=== PATIENT | male | born 1990 | race Caucasian/White ===

== ENCOUNTER 2022-02-04 05:37 | Inpatient (IN) | payer BC, OTHER, SELFPAY ==
[2022-02-04] MEDS ORDERED: MORPHINE 4 MG/ML SYR ONE (06:39)
[2022-02-04] MEDS ORDERED: NA CHLORIDE 0.9% 1,000 ML ONE ×2 (06:40→16:16)
[2022-02-04] MEDS ORDERED: ONDANSETRON 4 MG/2 ML VIAL ONE (06:40)
[2022-02-04 06:41] LABS: Absolute Lymphocytes (CBC) 1.9 K/uL (0.7-4.9); Hematocrit 41.7 % (39.6-49.0); Lymphocytes % 20.6 % (15.3-44.8); MCV 79.8 fL (80-100); MPV 7.5 fL (7.6-11.3); RBC Red Blood Cell Count 5.23 M/uL (4.33-5.43)
[2022-02-04 06:45] LABS: Protime INR 1.07
[2022-02-04 06:57] LABS: SARS-CoV-2 Antigen Rapid Res Negative (Negative)
[2022-02-04 07:00] LABS: Albumin 3.5 g/dL (3.4-5.0); Bilirubin Total 0.4 mg/dL (0.2-1.0); Potassium 3.7 mmol/L (3.5-5.1); Protein, Total 7.5 g/dL (6.4-8.2)
--- NOTE | 2022-02-04 07:57 | RAD REPORT ---
EXAM DESCRIPTION: CTAbdomen Pelvis W Contrast - 02/04/2022 7:37 am CLINICAL HISTORY: abdominal pain, blood in stool COMPARISON: No comparisons TECHNIQUE: CT of the abdomen and pelvis was performed with IV contrast. All CT scans are performed using dose optimization technique as appropriate and may include automated exposure control or mA/KV adjustment according to patient size. FINDINGS: Lower chest: No acute abnormality. Liver: No acute abnormality or suspicious lesions. Focal fat along the falciform ligament. Biliary: No biliary ductal dilatation. Stomach: No significant focal abnormality. Duodenum: No significant focal abnormality. Pancreas: No significant abnormality. Spleen: No significant abnormality. Adrenal: No suspicious lesions. Kidney/ureter: No hydronephrosis. No renal calculi. Retroperitoneum: No retroperitoneal adenopathy. Vascular: No aneurysm. Bowel: Circumferential rectal wall thickening. Enlarged perirectal lymph nodes.. Normal appendix. Peritoneum: No ascites or free air. Bladder: Grossly unremarkable. Reproductive: No adnexal masses. Bones: No acute fracture. Other: n/a IMPRESSION: Moderate circumferential thickening at the lower third of the rectum with an enlarged pe rirectal lymph node could be secondary to chronic inflammation however a rectal adenocarcinoma has a similar appearance and should be excluded. Recommend colonoscopy.
--- NOTE | 2022-02-04 09:51 | EDPHYS ---
Physician Documentation [facility] Name: Antonio Rees Age: 31 yrs Sex: Male : 1990 Arrival Date: 02/04/2022 Time: 05:42 Bed 18 Private MD: ED Physician Jeb Damon HPI: 02/04 06:02 This 31 yrs old Male presents to ER via Unassigned with complaints of Abdominal Pain. rn 06:02 The patient presents with abdominal pain that is diffuse. Onset: The symptoms/episode rn began/occurred 1 year(s) ago. The symptoms do not radiate. Associated signs and symptoms: Pertinent positives: blood in stools, diarrhea, Pertinent negatives: fever. The symptoms are described as crampy, intermittent. Modifying factors: The symptoms are alleviated by nothing, the symptoms are aggravated by food. Severity of pain: At its worst the pain was moderate in the emergency department the pain is unchanged. The patient has experienced similar episodes in the past. The patient has not recently seen a physician. Pt reports approx 1 year of "GI issues". Recently seen by Dr. Pagan, blood ordered, but no scope. Pt reports intermittent but frequent abd pain with nausea and diarrhea. + intermittent bloody stool. No known famhx of intestinal problems. + weight loss but states has made dietary modifications. . Historical: - Allergies: 06:10 No Known Allergies; vc1 - Home Meds: 06:10 None [Active]; vc1 - PMHx: 06:10 None; vc1 - PSHx: 06:10 Cyst removed from lower back; vc1 - Immunization history:: Adult Immunizations up to date, Client reports having NOT received the Covid vaccine. - Social history:: Smoking status: Patient denies any tobacco usage or history of. Patient uses alcohol, Couple of beers a week. - Family history:: not pertinent. - Hospitalizations: : No recent hospitalization is reported. ROS: 06:02 Constitutional: Negative for fever, chills Eyes: Negative for injury, pain, redness, rn and discharge, Cardiovascular: Negative for chest pain, palpitations, and edema, Respiratory: Negative for shortness of breath, cough, wheezing, and pleuritic chest pain, Abdomen/GI: + abd pain with diarrhea and blood in stool Back: Negative for injury and pain, MS/Extremity: Negative for injury and deformity, Skin: Negative for injury, rash, and discoloration, Neuro: Negative for headache, weakness, numbness, tingling, and seizure. Exam: 06:02 Constitutional: This is a well developed, well nourished patient who is awake, alert, rn and in no acute distress. Head/Face: Normocephalic, atraumatic. Cardiovascular: Regular rate and rhythm. No pulse deficits. Respiratory: Speaking full sentences, unlabored. No increased work of breathing, no retractions or nasal flaring. Abdomen/GI: soft, + tender in bilateral lower quadrants Skin: Warm, dry MS/ Extremity: Pulses equal, no cyanosis. Neuro: Awake and alert, GCS 15 Vital Signs: 06:00 BP 144 / 95; Pulse 91; Resp 17 S; Pulse Ox 98% on R/A; Pain 9/10; ha1 06:04 BP 144 / 95 Sitting; Pulse 91 MON; Resp 17 S; Temp 98.0(O); Pulse Ox 98% on R/A; Weight vc1 111.13 kg (R); Height 5 ft. 10 in. (177.80 cm) (R); 07:45 BP 148 / 70; Pulse 69; Resp 16 S; Pulse Ox 100% on R/A; Pain 3/10; jg9 08:30 BP 120 / 65; Pulse 71; Resp 17 S; Pulse Ox 98% on R/A; jg9 10:15 BP 136 / 66; Pulse 67; Resp 14 S; Pulse Ox 100% on R/A; jg9 06:04 Body Mass Index 35.15 (111.13 kg, 177.80 cm) vc1 MDM: 05:43 Patient medically screened. rn 07:22 Transition of care: Care assumed from Denzel Smith MD. ms3 08:14 Physician consultation: Kip Pagan MD was called at 08:04. ms3 16:26 Data reviewed: vital signs, nurses notes, and as a result, I will admit patient. ED ms3 course: Case discussed with Dr Pagan and he will plan on endoscopy tomorrow at 2 PM. Would like colon prep. Discussed case with Dr Godinez.. 02/04 06:01 Order name: CBC with Diff; Complete Time: 06:59 rn 02/04 06:01 Order name: CMP; Complete Time: 07:01 rn 02/04 06:01 Order name: Lipase; Complete Time: 07:01 rn 02/04 06:01 Order name: PT-INR; Complete Time: 06:59 rn 02/04 06:01 Order name: Ptt, Activated; Complete Time: 06:59 rn 02/04 06:01 Order name: SARS RAPID; Complete Time: 06:59 rn 02/04 06:01 Order name: CT Abd/Pelvis - IV Contrast Only; Complete Time: 07:58 rn 02/04 06:01 Order name: IV Saline Lock; Complete Time: 06:16 rn 02/04 06:01 Order name: Labs collected and sent; Complete Time: 07:14 rn Administered Medications: 06:38 Drug: morphine 4 mg Route: IVP; Infused Over: 4 mins; Site: right antecubital; ha1 07:03 Follow up: Response: No adverse reaction; Pain is decreased; RASS: Alert and Calm (0) ha1 06:39 Drug: NS 0.9% 1000 ml Route: IV; Rate: 1 bolus; Site: right antecubital; ha1 08:25 Follow up: IV Status: Completed infusion; IV Intake: 1000ml jg9 06:39 Drug: Zofran (Ondansetron) 4 mg Route: IVP; Site: right antecubital; ha1 07:03 Follow up: Response: No adverse reaction ha1 Disposition Summary: 02/04/22 09:50 Hospitalization Ordered Hospitalization Status: Observation ms3 [facility] ms3 Condition: Stable ms3 Problem: new ms3 Symptoms: are unchanged ms3 Bed/Room Type: Standard ms3 Provider: Antonio Godinez(02/04/22 10:42) ms3 Room Assignment: [facility](02/04/22 15:12) Diagnosis - Lower abdominal pain, unspecified ms3 - Lower GI bleeding ms3 Forms: - Medication Reconciliation Form ms3 - SBAR form ms3 Signatures: Dispatcher [employer] Kerry Zacarias RN RN dw Nieto, Roman, MD MD rn Sims, Marcus, DO DO ms3 Chela Lloyd RN RN vc1 Keiko Ames RN RN ha1 Tracie Nunez RN jg9 Corrections: (The following items were deleted from the chart) 10:42 09:50 Hal Venegas ms3 ms3 15:12 09:50 ms3 dw
--- NOTE | 2022-02-04 09:51 | ER ---
Nurse's Notes [facility] Name: Antonio Rees Age: 31 yrs Sex: Male : 1990 Arrival Date: 02/04/2022 Time: 05:42 Bed 18 Private MD: Diagnosis: Lower abdominal pain, unspecified;Lower GI bleeding Presentation: 02/04 06:04 Chief complaint: Patient states: "I started having abdominal pain about a year ago, it vc1 is to the point where it is just getting worse and worse. I can't eat what I normally eat. I am having trouble sleeping because of the pain or because I feel like I need to go to the bathroom all night. When I do go there is blood in my stool.". Coronavirus screen: Vaccine status: Patient reports being unvaccinated. At this time, the client does not indicate any symptoms associated with coronavirus-19. Ebola Screen: No symptoms or risks identified at this time. Initial Sepsis Screen: Does the patient meet any 2 criteria? HR > 90 bpm. No. Patient's initial sepsis screen is negative. Does the patient have a suspected source of infection? No. Patient's initial sepsis screen is negative. Risk Assessment: Do you want to hurt yourself or someone else? Patient reports no desire to harm self or others. Onset of symptoms is unknown. 06:04 Method Of Arrival: Ambulatory vc1 06:04 Acuity: GEORGIE 3 vc1 Triage Assessment: 06:10 General: Appears in no apparent distress. Behavior is calm, cooperative, appropriate vc1 for age. Pain: Complains of pain in umbilical area and left lower quadrant Pain radiates to back Also complains of decreased appetite, sleeplessness. EENT: No deficits noted. Neuro: Level of Consciousness is awake, alert, obeys commands, Oriented to person, place, time, situation, Appropriate for age. Cardiovascular: Patient's skin is warm and dry. Respiratory: Airway is patent Respiratory effort is even, unlabored, Respiratory pattern is regular, symmetrical. GI: Abdomen is round non-distended, Reports lower abdominal pain, diarrhea, bloody stool, epigastric pain, gaseousness, intolerance of food. : No signs and/or symptoms were reported regarding the genitourinary system. Derm: No deficits noted. Musculoskeletal: No deficits noted. Historical: - Allergies: 06:10 No Known Allergies; vc1 - Home Meds: 06:10 None [Active]; vc1 - PMHx: 06:10 None; vc1 - PSHx: 06:10 Cyst removed from lower back; vc1 - Immunization history:: Adult Immunizations up to date, Client reports having NOT received the Covid vaccine. - Social history:: Smoking status: Patient denies any tobacco usage or history of. Patient uses alcohol, Couple of beers a week. - Family history:: not pertinent. - Hospitalizations: : No recent hospitalization is reported. Screenin:13 Abuse screen: Denies threats or abuse. Nutritional screening: No deficits noted. vc1 Tuberculosis screening: No symptoms or risk factors identified. Fall Risk None identified. Assessment: 06:00 General: Appears in no apparent distress. Behavior is calm, cooperative. Pain: ha1 Complains of pain in abdomen Pain does not radiate. Pain at worst was 10 out of 10 on a pain scale. Pain began a year ago Alleviated by medications, Aggravated by eating. Neuro: Level of Consciousness is awake, alert, obeys commands, Oriented to person, place, time, situation, Speech is normal. Cardiovascular: Capillary refill < 3 seconds Patient's skin is warm and dry. Respiratory: Airway is patent Trachea midline Respiratory effort is even, unlabored. GI: Abdomen is non-distended, obese, Bowel sounds present X 4 quads. : No signs and/or symptoms were reported regarding the genitourinary system. EENT: No deficits noted. No signs and/or symptoms were reported regarding the EENT system. Derm: Skin is intact, Skin is pink, warm \\T\\ dry. Musculoskeletal: Circulation, motion, and sensation intact. Range of motion: intact in all extremities. 07:50 Reassessment: Patient states feeling better. Patient states symptoms have improved. GI: jg9 Abd is soft and non tender X 4 quads. Reports lower abdominal pain, Pain is 3 out of 10 on a pain scale. 08:00 Reassessment: Patient and/or family updated on plan of care and expected duration. Pain jg9 level reassessed. Patient is alert, oriented x 3, equal unlabored respirations, skin warm/dry/pink. 09:00 Reassessment: Patient and/or family updated on plan of care and expected duration. Pain jg9 level reassessed. Patient is alert, oriented x 3, equal unlabored respirations, skin warm/dry/pink. Vital Signs: 06:00 BP 144 / 95; Pulse 91; Resp 17 S; Pulse Ox 98% on R/A; Pain 9/10; ha1 06:04 BP 144 / 95 Sitting; Pulse 91 MON; Resp 17 S; Temp 98.0(O); Pulse Ox 98% on R/A; Weight vc1 111.13 kg (R); Height 5 ft. 10 in. (177.80 cm) (R); 07:45 BP 148 / 70; Pulse 69; Resp 16 S; Pulse Ox 100% on R/A; Pain 3/10; jg9 08:30 BP 120 / 65; Pulse 71; Resp 17 S; Pulse Ox 98% on R/A; jg9 10:15 BP 136 / 66; Pulse 67; Resp 14 S; Pulse Ox 100% on R/A; jg9 06:04 Body Mass Index 35.15 (111.13 kg, 177.80 cm) vc1 ED Course: 05:42 Patient arrived in ED. es 05:43 Denzel Smith MD is Attending Physician. rn 06:00 Inserted saline lock: 20 gauge in right antecubital area, using aseptic technique. ha1 06:01 Keiko Ames RN is Primary Nurse. ha1 06:09 Triage completed. vc1 06:13 Arm band placed on. vc1 06:13 Patient has correct armband on for positive identification. Bed in low position. Call vc1 light in reach. Pulse ox on. NIBP on. 06:38 CBC with Diff Sent. ha1 06:38 CMP Sent. ha1 06:38 Lipase Sent. ha1 06:38 PT-INR Sent. ha1 06:38 Ptt, Activated Sent. ha1 06:40 SARS RAPID Sent. ha1 07:17 Report given to PERRY Grewal. ha1 07:21 Attending Physician role handed off by Denzel Smith MD ms3 07:21 Jeb Damon DO is Attending Physician. ms3 07:39 CT Abd/Pelvis - IV Contrast Only In Process Unspecified. EDMS 08:40 ED physician to see patient. jg9 09:00 No apparent distress. Resting quietly. Awaiting disposition. jg9 09:50 Hal Venegas MD is Hospitalizing Provider. ms3 10:42 Antonio Godinez is Hospitalizing Provider. ms3 16:21 No provider procedures requiring assistance completed. jg9 16:22 Patient admitted, IV remains in place. jg9 Administered Medications: 06:38 Drug: morphine 4 mg Route: IVP; Infused Over: 4 mins; Site: right antecubital; ha1 07:03 Follow up: Response: No adverse reaction; Pain is decreased; RASS: Alert and Calm (0) ha1 06:39 Drug: NS 0.9% 1000 ml Route: IV; Rate: 1 bolus; Site: right antecubital; ha1 08:25 Follow up: IV Status: Completed infusion; IV Intake: 1000ml j9 06:39 Drug: Zofran (Ondansetron) 4 mg Route: IVP; Site: right antecubital; ha1 07:03 Follow up: Response: No adverse reaction ha1 Medication: 16:22 VIS not applicable for this client. jg9 Intake: 08:25 IV: 1000ml; Total: 1000ml. jg9 Outcome: 09:50 Decision to Hospitalize by Provider. ms3 16:21 Admitted to ER Hold. Please see [facility] for further documentation. jg9 16:21 Condition: stable 16:22 Patient left the ED. jg9 Signatures: Dispatcher [employer] Danii Brown Roman, MD MD rn Sims, Marcus, DO DO ms3 Tracie Nunez RN RN jg9 Chela Lloyd RN RN 1 Keiko Ames RN RN ha1
--- NOTE | 2022-02-04 13:17 | P.HP ---
Certification for Inpatient Patient admitted to: Observation With expected LOS: <2 Midnights Practitioner: I am a practitioner with admitting privileges, knowledge of patient current condition, hospital course, and medical plan of care. Services: Services provided to patient in accordance with Admission requirements found in Title 42 Section 412.3 of the Code of Federal Regulations Patient History Date of Service: 02/04/22 Reason for admission: Lower GI bleed History of Present Illness: 31-year-old gentleman with known past medical history presented to the emergency department with a complaint abdominal pain and rectal bleeding. Patient states symptoms have been present for about 1 year. He described a constant abdominal pain and had been using Tylenol and ibuprofen to curb it. He also reported intermittent bloody bowel movement. He reports weight loss-about 70 pounds over the past 1 year, mixed intentional and unintentional. He saw Dr. Martino 1 month ago who recommended colonoscopy but not done yet. He experienced severe abdominal pain last night and therefore presented to the ED for evaluation. CT abdomen and pelvis done in the ED demonstrated moderate circumferential thickening at the lower third of the rectum with an enlarged perirectal lymph node could be secondary to chronic inflammation however a rectal adenocarcinoma has a similar appearance and should be excluded. Dr. Pagan was contacted who recommended hospitalization for colonoscopy. Patient is hospitalized for further management. Allergies No Known Allergies Allergy (Verified 02/04/22 10:47) Home Medications: NK [No Home Meds] 02/04/22 - Past Medical/Surgical History -: Morbid obesity -: None - Family History Father -: Hypertension - Social History Smoking Status: Never smoker Alcohol use: Yes CD- Drugs: No Place of Residence: Home Review of Systems Other: Except as documented, all other systems reviewed and negative. Physical Examination - Physical Exam General: Alert, In no apparent distress, Oriented x3 HEENT: PERRLA, Mucous membr. moist/pink, EOMI, Sclerae nonicteric Neck: Supple, JVD not distended Respiratory: Clear to auscultation bilaterally, Normal air movement Cardiovascular: No edema, Regular rate/rhythm, Normal S1 S2, No murmurs Capillary refill: <2 Seconds Gastrointestinal: Normal bowel sounds, Soft and benign, Non-distended, No rebound, No guarding, Tenderness (Lower abdomen) Musculoskeletal: No swelling, No tenderness Integumentary: No rashes, No cyanosis Neurological: Normal speech, Normal strength at 5/5 x4 extr, Cranial nerves 3-12 intact Lymphatics: No axilla or inguinal lymphadenopathy - Studies Laboratory Data (last 24 hrs) 02/04/22 06:20: PT 11.8, INR 1.07, APTT 28.6 02/04/22 06:20: Sodium 140, Potassium 3.7, BUN 12, Creatinine 1.07, Glucose 135 H, Total Bilirubin 0.4, AST 8 L, ALT 15, Alkaline Phosphatase 81, Lipase 94 02/04/22 06:20: WBC 9.30, Hgb 14.1, Hct 41.7, Plt Count 339 Assessment and Plan - Problems (Diagnosis) (1) GI bleeding Current Visit: Yes Status: Acute (2) Colon wall thickening Current Visit: Yes Status: Acute - Plan Placed under observation on the medical floor. Hydrate with IV normal saline Start empiric IV Rocephin. GI consulted for endoscopy. Keep n.p.o. overnight. Bowel prep per GI. Monitor hemoglobin and transfuse as needed. IV morphine as needed for pain. - Advance Directives Does patient have a Living Will: No Does patient have a Durable POA for Healthcare: No
[2022-02-04] MEDS ORDERED: NA CHLORIDE 0.9% 250 ML IV SCH (14:08)
[2022-02-04] MEDS: NA CHLORIDE 0.9% 1,000 ML IV SCH (14:08)
[2022-02-04] MEDS: CEFTRIAXONE 1,000 MG in NA CHLORIDE 0.9% 50 ML IVPB SCH (15:00)
[2022-02-04] MEDS ORDERED: CEFTRIAXONE 1000 MG/VIAL ONE (16:09)
[2022-02-04] MEDS: MORPHINE 2 MG/ML SYR IV PRN ×2 (16:09→22:10)
[2022-02-04] MEDS ORDERED: MORPHINE 2 MG/ML SYR ONE (16:19)
[2022-02-04] MEDS ORDERED: BISACODYL 10 MG RECTAL SUPP PR ONE (18:56)
[2022-02-04] MEDS ORDERED: GOLYTELY 4000 ML PO SCH (19:00)
[2022-02-04] MEDS ORDERED: METOCLOPRAMIDE 10 MG/2mL INJ IV SCH (19:00)
[2022-02-05] MEDS: NA CHLORIDE 0.9% 1,000 ML IV SCH ×4 (02:15→20:08)
[2022-02-05] MEDS: ONDANSETRON 4 MG/2 ML VIAL IV PRN ×2 (02:16→16:56)
[2022-02-05] MEDS: MORPHINE 2 MG/ML SYR IV PRN ×3 (02:16→23:15)
[2022-02-05 05:06] LABS: Absolute Lymphocytes (CBC) 2.2 K/uL (0.7-4.9); Hematocrit 42.5 % (39.6-49.0); Lymphocytes % 17.4 % (15.3-44.8); MPV 7.4 fL (7.6-11.3); RBC Red Blood Cell Count 5.25 M/uL (4.33-5.43)
[2022-02-05 05:19] LABS: Potassium 4.1 mmol/L (3.5-5.1)
[2022-02-05] MEDS: CEFTRIAXONE 1,000 MG in NA CHLORIDE 0.9% 50 ML IVPB SCH (09:55)
--- NOTE | 2022-02-05 13:55 | EKG ---
Test Date: 2022-02-05 Test Time: 11:18:17 Associate Director Career Services: BUTCH MEASUREMENT RESULTS: Intervals: Rate: 70 NH: 158 QRSD: 84 QT: 372 QTc: 401 [place]: P: 62 NH: 158 QRS: 60 T: 65 INTERPRETIVE STATEMENTS: Normal sinus rhythm Normal ECG No previous ECG available for comparison Electronically Signed On 02-05-22 13:54:39 CDT by Miki Bass
[2022-02-05 14:21] VITALS: BMI 35.2
--- NOTE | 2022-02-05 18:37 | P.PN ---
Subjective Date of Service: 02/05/22 Chief Complaint: Lower GI bleed No new complaint. He completed a bowel prep and had multiple diarrhea bowel movements. No bleeding per rectum. Physical Examination - Vital Signs Temperature: 97.7 F Blood Pressure: 120/82 Pulse: 67 Respirations: 18 Pulse Ox (%): 99 Assessment And Plan - Current Problems (Diagnosis) (1) GI bleeding Current Visit: Yes Status: Acute (2) Colon wall thickening Current Visit: Yes Status: Acute - Plan Physical Exam General: Alert, In no apparent distress, Oriented x3 HEENT: PERRLA, Mucous membr. moist/pink, EOMI, Sclerae nonicteric Neck: Supple, JVD not distended Respiratory: Clear to auscultation bilaterally, Normal air movement Cardiovascular: No edema, Regular rate/rhythm, Normal S1 S2, No murmurs Capillary refill: <2 Seconds Gastrointestinal: Normal bowel sounds, Soft and benign, Non-distended, No rebound, No guarding, Tenderness (Lower abdomen) Musculoskeletal: No swelling, No tenderness Integumentary: No rashes, No cyanosis Neurological: Normal speech, Normal strength at 5/5 x4 extr, Cranial nerves 3-12 intact Lymphatics: No axilla or inguinal lymphadenopathy Plan: Patient is n.p.o. for endoscopy/colonoscopy today Continue IV fluid Continue antibiotic. Monitor hemoglobin and transfuse as needed. IV morphine as needed for pain.
[2022-02-05] MEDS ORDERED: POLYETHYL GLY 3350 17 GM/DOSE PO PRN (20:31)
[2022-02-06] MEDS: NA CHLORIDE 0.9% 1,000 ML IV SCH ×3 (04:55→17:41)
[2022-02-06] MEDS: CEFTRIAXONE 1,000 MG in NA CHLORIDE 0.9% 50 ML IVPB SCH (07:38)
[2022-02-06] MEDS ORDERED: Ringers Lactate 1,000 ML IV ONE (14:54)
[2022-02-06] MEDS ORDERED: propofoL 200 MG/20 ML VIAL IV ONE ×3 (15:31→16:31)
[2022-02-06] MEDS ORDERED: LIDOCAINE 1% MPF 5 ML VIAL ONE (15:31)
--- NOTE | 2022-02-06 16:27 | ENDO RPT ---
[address], [address] EGD PROCEDURE REPORT EXAM DATE: 02/06/2022 PATIENT NAME: Antonio Rees MR#: [id number] BIRTHDATE: 1990 ATTENDING: Kip Pagan Dr STATUS: inpatient - 7 DENITRATOR: Bonnie Carson RN and Med Schwartz CST INDICATIONS: The patient is a 31 yr old Male here for an EGD due to bloating, dyspepsia, and early satiety PROCEDURE PERFORMED: EGD with biopsy MEDICATIONS: Per Anesthesia. TOPICAL ANESTHETIC: none CONSENT: The patient understands the risks and benefits of the procedure and understands that these risks include, but are not limited to: sedation, allergic reaction, infection, perforation and/or bleeding. Alternative means of evaluation and treatment include, among others: physical exam, x-rays, and/or surgical intervention. The patient elects to proceed with this endoscopic procedure. DESCRIPTION OF PROCEDURE: During intra-op preparation period all mechanical medical equipment was checked for proper function. Hand hygiene and appropriate measures for infection prevention was taken. Procedure, possible complications, and alternatives including but not limited to the possibility of bleeding, perforation, tear, infection, sepsis, need for surgery, need for blood transfusion, and anesthesia related complications were explained to the patient. After the risks, benefits and alternatives of the procedure were thoroughly explained, Informed consent was verified, confirmed and timeout was successfully executed by the treatment team. The patient was placed in the left lateral position. The patient was anesthetized with topical anesthesia. Through the anesthetized oropharyngeal area, the scope was passed without any difficulty. The [id number] ([id number]) endoscope was introduced through the mouth and advanced to the third portion of the duodenum. Retroflexed views revealed a small hiatal hernia. The gastroscope was then slowly withdrawn and removed. LA Class A esophagitis was found in the lower esophagus. A small hiatal hernia was found. Multiple (3) erosions were found in the antrum. Multiple biopsies were obtained and sent to pathology. Mild duodenitis was found in the bulb of the duodenum. ADVERSE EVENTS: There were no complications. IMPRESSIONS: 1. LA class A esophagitis in the lower esophagus 2. Small hiatal hernia 3. Multiple (3) erosions in the antrum, s/p biopsies 4. Mild duodenitis in the bulb of the duodenum RECOMMENDATIONS: 1. await biopsy results 2. acid suppression therapy REPEAT EXAM: Kip Pagan Dr eSigned: Kip Pagan Dr 02/06/2022 4:27 PM cc: CPT CODES: ICD9 CODES: PATIENT NAME: Antonio ReesSara MR#: [id number]
--- NOTE | 2022-02-06 17:15 | ENDO RPT ---
[address], [address] COLONOSCOPY PROCEDURE REPORT EXAM DATE: 02/06/2022 PATIENT NAME: Antonio Rees MR #: [id number] BIRTHDATE: 1990 ATTENDING: Kip Pagan Dr STATUS: inpatient - 7 MULT[employer] OPERATOR: Bonnie Carson RN, Med Schwartz CST, and Angeles Corcoran RN INDICATIONS: The patient is a 31 yr old Male here for a colonoscopy due to hematochezia, abdominal pain, abnormal CT of abdomen, and weight loss PROCEDURE PERFORMED: Colonoscopy with biopsy MEDICATIONS: Per Anesthesia. ESTIMATED BLOOD LOSS: None CONSENT: The patient understands the risks and benefits of the procedure and understands that these risks include, but are not limited to: sedation, allergic reaction, infection, perforation and/or bleeding. Alternative means of evaluation and treatment include, among others: physical exam, x-rays, and/or surgical intervention. The patient elects to proceed with this endoscopic procedure. DESCRIPTION OF PROCEDURE: During intra-op preparation period all mechanical medical equipment was checked for proper function. Hand hygiene and appropriate measures for infection prevention was taken. Procedure, possible complications, alternatives including, but not limited to possibility of bleeding, perforation, tear, infection, sepsis, need for surgery, need for blood transfusion, were explained to the patient. After the risks, benefits and alternatives of the procedure were thoroughly explained, Informed consent was verified, confirmed and timeout was successfully executed by the treatment team. The patient was placed in the left lateral position. A digital rectal exam was performed and revealed a palpable rectal mass. After appropriate level of anesthesia, the scope was passed. The EC-[id number] ([id number]) endoscope was introduced through the anus and advanced to the cecum. The quality of the prep was fair. The instrument was then slowly withdrawn as the colon was fully examined. Scope withdrawal time was 12 minutes. COLON FINDINGS: Mild diverticulosis was noted in the sigmoid colon. No bleeding was noted from the diverticulosis. A half circumferential ulcerated and fungating mass ( 60% of lumen) with central depression / cavitation, measuring 6 X 4cm in size, was found in the rectum. Multiple biopsies of the lesion were performed using cold forceps. Mass abuts the dentate line and extends 6 cm proximally into the rectum. Small internal hemorrhoids were found. Retroflexion was not performed. The scope was then completely withdrawn from the patient and the procedure terminated. ADVERSE EVENTS: There were no complications. IMPRESSIONS: 1. Mild diverticulosis in the sigmoid colon 2. Half circumferential mass ( 60% of lumen) with central depression / cavitation, measuring 6 X 4cm in size, was found in the rectum; multiple biopsies of the lesion were performed. Mass abuts the dentate line and extends 6 cm proximally into the rectum 3. Small internal hemorrhoids 4. Intubation to cecum RECOMMENDATIONS: 1. await biopsy results 2. avoid NSAIDS for 2 weeks RECALL: Return in 1 year(s) for Colonoscopy. Kip Pagan Dr eSigned: Kip Pagan Dr 02/06/2022 5:15 PM cc: CPT CODES: ICD9 CODES: 1. 211.4 Benign neoplasm of rectum and anal canal 2. 239.0 Neoplasm of unspecified nature of digestive system PATIENT NAME: Antonio Rees MR#: [id number]
[2022-02-06] MEDS ORDERED: ONDANSETRON 4 MG/2 ML VIAL ONE (17:16)
[2022-02-06] MEDS ORDERED: PROMETHAZINE INJ 25 MG/ML AMP ONE (17:27)
[2022-02-06] MEDS ORDERED: TRAMADOL HCL 50 MG TAB PO PRN (17:29)
[2022-02-06 17:31] VITALS: O2SAT 100
[2022-02-06 17:32] VITALS: BP 138/88; TEMP 97.6
--- NOTE | 2022-02-06 18:24 | P.DS ---
Admission Date: 02/04/22 Discharge Date: 02/06/22 Disposition: ROUTINE DISCHARGE Discharge Condition: FAIR Reason for Admission: Lower GI bleed - Problems (1) GI bleeding Status: Acute (2) Colon wall thickening Status: Acute (3) Mass in rectum Status: Acute Brief History of Present Illness: 31-year-old gentleman with known past medical history presented to the emergency department with a complaint abdominal pain and rectal bleeding. Patient states symptoms have been present for about 1 year. He described a constant abdominal pain and had been using Tylenol and ibuprofen to curb it. He also reported intermittent bloody bowel movement. He reports weight loss-about 70 pounds over the past 1 year, mixed intentional and unintentional. He saw Dr. Martino 1 month ago who recommended colonoscopy but not done yet. He experienced severe abdominal pain last night and therefore presented to the ED for evaluation. CT abdomen and pelvis done in the ED demonstrated moderate circumferential thickening at the lower third of the rectum with an enlarged perirectal lymph node could be secondary to chronic inflammation however a rectal adenocarcinoma has a similar appearance and should be excluded. Dr. Pagan was contacted who recommended hospitalization for colonoscopy. Patient was hospitalized for further management. Hospital Course: Patient admitted to the medical floor and treated supportively with IV fluid. He was seen by GI Dr. Pagan and prepped for colonoscopy. Upper GI endoscopy revealed esophagitis, gastric erosions and duodenitis. Colonoscopy revealed a half circumferential mass with depression extending to the rectum. High suspicion for malignancy. Multiple biopsies were taken. Patient request to go home. He is currently tolerating clear liquid diet. Patient is discharged to follow with Dr. Pagan within 1 week regarding the biopsy results and oncology- Dr. Holguin. He is prescribed Protonix for the esophagitis/gastritis/duodenitis. Vital Signs/Physical Exam: Temp Pulse Resp BP Pulse Ox 97.6 F 73 18 138/88 100 02/06/22 17:15 02/06/22 17:15 02/06/22 17:15 02/06/22 17:15 02/06/22 12:00 General: Alert, In no apparent distress, Oriented x3 HEENT: Mucous membr. moist/pink Respiratory: Clear to auscultation bilaterally, Normal air movement Cardiovascular: No edema, Regular rate/rhythm, Normal S1 S2 Gastrointestinal: Soft and benign, Non-distended Musculoskeletal: No swelling Laboratory Data at Discharge: WBC 12.50 K/uL (4.3-10.9) H D 02/05/22 04:46 Hgb 14.2 g/dL (13.6-17.9) 02/05/22 04:46 Hct 42.5 % (39.6-49.0) 02/05/22 04:46 Plt Count 352 K/uL (152-406) 02/05/22 04:46 PT 11.8 SECONDS (9.5-12.5) 02/04/22 06:20 INR 1.07 02/04/22 06:20 APTT 28.6 SECONDS (24.3-36.9) 02/04/22 06:20 Sodium 138 mmol/L (136-145) 02/05/22 04:46 Potassium 4.1 mmol/L (3.5-5.1) 02/05/22 04:46 BUN 9 mg/dL (7-18) 02/05/22 04:46 Creatinine 0.89 mg/dL (0.55-1.3) 02/05/22 04:46 Glucose 121 mg/dL (74-106) H 02/05/22 04:46 Total Bilirubin 0.4 mg/dL (0.2-1.0) 02/04/22 06:20 AST 8 U/L (15-37) L 02/04/22 06:20 ALT 15 U/L (12-78) 02/04/22 06:20 Alkaline Phosphatase 81 U/L (45-117) 02/04/22 06:20 Lipase 94 U/L (73-393) 02/04/22 06:20 Home Medications: Pantoprazole [Protonix Tab] 40 mg PO BID #60 tab 02/06/22 traMADol HCL [Ultram*] 50 mg PO Q6H PRN #20 tab 02/06/22 New Medications: Pantoprazole [Protonix Tab] 40 mg PO BID #60 tab traMADol HCL [Ultram*] 50 mg PO Q6H PRN #20 tab PRN Reason: PAIN Physician Discharge Instructions: Liquid diet until tomorrow morning and advance as tolerated. Diet: Regular Activity: Ad sangita Followup: NONE,NONE [Primary Care Provider] - 1-2 Weeks (call to schedule an appointment) Shelli Brown MD [ACTIVE - CAN ADMIT] - 1 Week (Follow up for rectal cancer) Kip Pagan MD [ASSOCIATE-ACTIVE - CAN ADMIT] - 1 Week (Call to schedule an appointment) Time spent managing pt's care (in minutes): 33
--- NOTE | 2022-02-06 20:43 | CON ---
Date of Consultation: 02/06/2022 Reason For Consultation: Left lower greater than right lower quadrant pain with hematochezia and abn ormal CT revealing inflamed rectum. History Of Present Illness: The patient is a 31-year-old white male with history of morbid obesity. He presented for evaluation approximately 1 month ago, but the patient's history dates back 18 month s. Approximately 18 months ago, he began having dyspepsia after eating food with bloating and feelin g uncomfortable after eating food. Six months and then approximately 1 year ago, he began having lef t lower greater than right lower quadrant pain and hematochezia that was mild. He says over the past 4 days the pain has become excruciating up to 02/06, predominantly in the left lower quadrant greater than right lower quadrant, but as stated it was mild for approximately a year with hematochezia. Th e patient states that he has lost approximately 65-70 pounds over that time period. He normally weig hs 310 pounds, but was down to 280 pounds by June of this year. Since that time, he has gone veronique n to 245 pounds for a 65-pound weight loss. Patient states his appetite has decreased as well. He c ould normally 3 meals a day and now he is down to 1-2 meals a day because when he eats a meal, he has early satiety, fullness, bloating, and pain. The patient states that he changed his diet approximat dunia a year ago, thinking that the junk food was causing his left lower quadrant pain and hematochezia and dyspepsia and switching off all junk food including all heavy greasy foods and that gave him kaila e relief, but his symptoms have progressed with increasing left lower quadrant greater than right low er quadrant pain, hematochezia, and dyspepsia. Past Medical History: Significant only for obesity. Medications: At home are none. Allergies: NONE. Social History: He is . No children. No tobacco except occasional cigar while he was in [employer]. Alcohol: He has 2 beers per week. Family History: Father is alive with diabetes and hypertension. Mother is alive and well. Maternal grandmother of Alzheimer disease. Paternal grandfather of coronary artery disease. 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 Review of Systems: Patient has left lower quadrant greater than right lower quadrant pain, hematochezia, bloating, dyspe psia, early satiety, fullness, and weight loss. He denies any hematemesis, coffee-ground emesis, dawson janes, hemoptysis, hematemesis, epistaxis, hematuria, dysuria, polydipsia, chest pain, shortness of faby ath, seizure, syncope, lower extremity edema, muscle aches, joint aches, or backaches. He has had 65 -70 pound weight loss over the past year. No depression or anxiety noted. Physical Examination: Vital Signs: Patient is 5 feet 10, 245 pounds, BMI of 35.2 kg/sq m. His temperature is 97.6 degrees Fahrenheit, pulse 97, respirations 16, blood pressure 149/85, O2 saturation 100%. HEENT: Remarkable for mild alopecia. Pupils are equal, round, and reactive to light. Extraocular m ovements are intact. Oropharynx is clear. Neck: Supple. No masses. Respirations: Clear to auscultation bilaterally. Cardiovascular: Regular rate and rhythm. No gallops or rubs. Abdomen: Positive bowel sounds. Soft, nondistended. Pain in the left lower greater than right lowe r quadrant area. No peritoneal or Vargas sign. There was some mild guarding. Extremities: No clubbing, cyanosis, or edema. 2+ pulses. Neuro: Alert and oriented x3. Grossly nonfocal. 5/5 motor. Sensation intact to light touch. Laboratory Data: The patient has a white count of 12.5, up from 9.3 yesterday; hemoglobin 14.3; haylie tocrit 42.5; MCV of 81; platelet count 352; polys 70%; lymphocytes 17%; monocytes 10%; eosinophils 1. 6%, and basophils 0.5%. PT of 11.8, INR of 1.07, PTT of 28.7. Sodium 138, potassium 4.1, chloride 1 03, bicarb 30, BUN of 9, creatinine of 0.9, glucose 121, calcium 9.3 yesterday, total bilirubin 0.4, AST of 8, ALT of 15, alkaline phosphatase 81, total protein 7.2, albumin 3.5. Globulin 4.0, elevated . Lipase normal at 94. COVID-[address] scan of abdomen and pelvis with moderate circumferential thickening of the lower third of the rectum with enlarged perirectal lymph nodes that could be secondary chronic inflammation versus rectal adenocarcinoma or other. Recommendation for c olonoscopy. Of note, patient was in [facility] Clinic approximately a month ago and colonoscopy was recommen ded at that time, but patient unable to perform. Impression: 1.Left lower quadrant greater than right lower quadrant pain probably secondary to inflammation of t he rectum as noted on CT scan. 2.Hematochezia probably secondary to rectal inflammation. 3.65-pound weight loss probably related to inflammatory process in the rectum as noted. 4.Abnormal CT scan revealing the distal third of the rectum with marked inflammation that is circumf erential. 5.Early satiety, fullness, bloating, dyspepsia. Recommendations: 1.Proceed with colonoscopy and EGD in this patient. 2.Monitor labs. 3.Check [facility] or IBD panel. 4.Continue IV antibiotics. 5.If the patient has loose stools, we will check stool studies. 6.Continue IV fluids and IV antibiotics. 7.Continue p.r.n. pain medicines. DENEEN/JOSE G Voice ID: [id number] Report ID: [id number]
== END 2022-02-06 19:13 | disposition home or self-care (01) | DRG 374 ==
LOC: ER 05:37 → ERHOLD 12:28 → 2ND 15:30 → OBSVTOIN 16:30
PROVIDERS: ADMIT Internal Medicine; ATTEND Internal Medicine
PROC: 0DB78ZX Excision of Stomach, Pylorus, Via Natural or Artificial Opening Endoscopic, Diagnostic (ICD-10-PCS; principal; 2022-02-06 13:00)
PROC: 0DBN8ZX Excision of Sigmoid Colon, Via Natural or Artificial Opening Endoscopic, Diagnostic (ICD-10-PCS; 2022-02-06 13:00)
DX: C20 Malignant neoplasm of rectum (principal); K20.91 Esophagitis, unspecified with bleeding; K25.4 Chronic or unspecified gastric ulcer with hemorrhage; K29.81 Duodenitis with bleeding; K57.31 Diverticulosis of large intestine without perforation or abscess with bleeding; K64.8 Other hemorrhoids; K44.9 Diaphragmatic hernia without obstruction or gangrene; K62.9 Disease of anus and rectum, unspecified; Z79.899 Other long term (current) drug therapy; Z20.822 Contact with and (suspected) exposure to COVID-19
CPT/HCPCS: 36415; 74177; 80048; 80053; 83690; 85025; 85610; 85730; 87811; 88305; 88312; 93005; 96361; 96374; 96375; 99285; G0378; J2001; J2270; J2405; J2550; J2704; J2765; J7030; J7120; Q9967